=== PATIENT | female | born 1990 | race Caucasian/White ===

== ENCOUNTER 2022-01-26 00:10 | Observation (INO) | payer BC ==
[2022-01-26] MEDS ORDERED: Sodium Chloride 0.9% 20 ML SDV IV PRN (01:10)
[2022-01-26] MEDS ORDERED: Tranexamic Acid 1,000 MG in Sodium Chloride 0.9% 100 ML IV PRN (01:10)
[2022-01-26] MEDS ORDERED: Sodium Chloride 0.9% 2.5 ML Syringe FLUSH PRN (01:10)
[2022-01-26] MEDS ORDERED: Lidocaine 1% 50 ML MDV INJECT PRN (01:10)
[2022-01-26] MEDS ORDERED: Ondansetron 4 MG/2 ML SDV IVPUSH PRN (01:10)
[2022-01-26] MEDS ORDERED: Methylergonovine 0.2 MG/1 ML Amp IM PRN (01:10)
[2022-01-26] MEDS ORDERED: Butorphanol 1 MG/ML SDV IVPUSH PRN (01:10)
[2022-01-26] MEDS ORDERED: Water For Irrigation,Sterile 1,000 ML Container IRR PRN (01:10)
[2022-01-26] MEDS ORDERED: Carboprost Tromethamine 250 MCG/1 ML Amp IM PRN (01:10)
[2022-01-26] MEDS ORDERED: Sodium Chloride 0.9% 10 ML Syringe FLUSH PRN (01:10)
[2022-01-26] MEDS ORDERED: Misoprostol 200 MCG Tab PO PRN (01:10)
[2022-01-26] MEDS ORDERED: Lactated Ringers 1,000 ML IV SCH (01:15)
[2022-01-26] MEDS ORDERED: Oxytocin/0.9 % Sodium Chloride 30 UNIT/500 ML BAG IV SCH (01:15)
[2022-01-26] MEDS: Misoprostol 200 MCG Tab VAG SCH ×2 (02:02→08:22)
[2022-01-26 05:31] LABS: HEMOGLOBIN A1C 5.4 %
== END 2022-01-26 12:50 | disposition home or self-care (01) ==
LOC: MW.OBCHECK 00:10 → MW.OB 00:10 → MW.OBCHECK 01:16
PROVIDERS: ADMIT Obstetrics & Gynecology; ATTEND Obstetrics & Gynecology
DX: O02.1 Missed abortion (principal); O03.9 Complete or unspecified spontaneous abortion without complication; O09.212 Supervision of pregnancy with history of pre-term labor, second trimester; Z20.822 Contact with and (suspected) exposure to COVID-19; Z79.899 Other long term (current) drug therapy
CPT/HCPCS: 36415; 83036; 85027; 85610; 85611; 85613; 85670; 85732; 86146; 86147; 86592; 86644; 86645; 86695; 86696; 86777; 86778; 86850; 86900; 86901; 87635; 96374; A9270; G0378; J0595; U0002